=== PATIENT | female | born 1945 | race African-American/Black ===

== ENCOUNTER 2021-03-29 10:46 | Day surgery (SDC) | payer OTHER, BC ==
[2021-03-29] MEDS ORDERED: Ringers Lactate 1,000 ML IV ONE (11:44)
[2021-03-29] MEDS ORDERED: NA CIT/CITRIC AC 30 ML ORAL UDC ONE (13:18)
[2021-03-29] MEDS ORDERED: LIDOCAINE 1% MPF 5 ML VIAL ONE (13:46)
[2021-03-29] MEDS ORDERED: propofoL 200 MG/20 ML VIAL IV ONE (13:46)
--- NOTE | 2021-03-29 14:35 | ENDO RPT ---
[address], [address] EGD PROCEDURE REPORT EXAM DATE: 03/29/2021 PATIENT NAME: Kathi Loya MR#: [id number] BIRTHDATE: 1945 ATTENDING: Jeromy Valentine Dr STATUS: outpatient CHANNEL EXECUTIVE: Jennifer Parnell RN and Julieth Hanna INDICATIONS: The patient is a 75 yr old Female here for an EGD due to mid epigastric abdominal pain, belching, bloating, dyspepsia, and abnormal CT abd/pel - probable duodenal ulcer PROCEDURE PERFORMED: EGD with biopsy MEDICATIONS: Per Anesthesia. TOPICAL ANESTHETIC: none CONSENT: The patient understands the risks and benefits of the procedure and understands that these risks include, but are not limited to: sedation, allergic reaction, infection, perforation and/or bleeding. Alternative means of evaluation and treatment include, among others: physical exam, x-rays, and/or surgical intervention. The patient elects to proceed with this endoscopic procedure. DESCRIPTION OF PROCEDURE: During intra-op preparation period all mechanical medical equipment was checked for proper function. Hand hygiene and appropriate measures for infection prevention was taken. Procedure, possible complications, and alternatives including but not limited to the possibility of bleeding, perforation, tear, infection, sepsis, need for surgery, need for blood transfusion, and anesthesia related complications were explained to the patient. After the risks, benefits and alternatives of the procedure were thoroughly explained, Informed consent was verified, confirmed and timeout was successfully executed by the treatment team. The patient was placed in the left lateral position. The patient was anesthetized with topical anesthesia. Through the anesthetized oropharyngeal area, the scope was passed without any difficulty. The [id number] ([id number]) endoscope was introduced through the mouth and advanced to the second portion of the duodenum. Retroflexed views revealed a small hiatal hernia. The gastroscope was then slowly withdrawn and removed. A Schatzki's ring was found in the lower esophagus. A small hiatal hernia was found Mild atrophic gastritis was found in the antrum. Multiple biopsies were obtained and sent to pathology. Multiple (4) erosions were found in the antrum. Duodenitis was found in the bulb and descending duodenum. Multiple Multiple (3) 3-4 mm ulcers with secondary stenosis and minor bleeding after abrasion with endoscope were found in the apex of the duodenal bulb. ADVERSE EVENTS: There were no complications. IMPRESSIONS: 1. Schatzki's ring in the lower esophagus (no history of dysphagia) 2. Small hiatal hernia 3. Mild atrophic gastritis in the antrum, s/p biopsies 4. Multiple (4) erosions in the antrum 5. Duodenitis in the bulb and descending duodenum duodenum 7. Multiple (3) 3-4 mm ulcers with secondary stenosis and minor bleeding after abrasion with endoscope in the apex of the bulb of the duodenum RECOMMENDATIONS: 1. await biopsy results 2. acid suppression therapy 3. Carafate 1 gm po tid ac REPEAT EXAM: Jeromy Valentine Dr eSigned: Jeromy Valentine Dr 03/29/2021 2:35 PM cc: CPT CODES: ICD9 CODES: PATIENT NAME: Kathi Loya MR#: [id number]
[2021-03-29 15:57] VITALS: O2SAT 99
[2021-03-29 16:00] VITALS: TEMP 98
[2021-03-29 16:02] VITALS: BP 137/58
== END 2021-03-29 15:05 | disposition home or self-care (01) ==
LOC: OR 10:46
PROVIDERS: ATTEND Internal Medicine Gastroenterology
PROC: 0DB68ZX Excision of Stomach, Via Natural or Artificial Opening Endoscopic, Diagnostic (ICD-10-PCS; principal; 2021-03-29 13:30)
DX: K29.50 Unspecified chronic gastritis without bleeding (principal); K29.80 Duodenitis without bleeding; R94.8 Abnormal results of function studies of other organs and systems; R14.0 Abdominal distension (gaseous); R14.2 Eructation; K44.9 Diaphragmatic hernia without obstruction or gangrene; K26.4 Chronic or unspecified duodenal ulcer with hemorrhage; K22.2 Esophageal obstruction; K25.9 Gastric ulcer, unspecified as acute or chronic, without hemorrhage or perforation
CPT/HCPCS: 88312; 88305; 43239; J2704; J7120